=== PATIENT | male | born 1965 | race Caucasian/White ===

== ENCOUNTER 2016-08-12 23:57 | Emergency (ER) | payer OTHER ==
[~2016-08-12] VITALS: Ht 182.9 cm; Wt 92.5 kg
[~2016-08-12 23:57] MED LIST: SULF1TAB48 PO
[2016-08-13] MEDS ORDERED: ALBU8.5H2 INH (00:32)
--- NOTE | 2016-08-13 00:45 | NUR ---
Pt c/o ache on back. Denies pain and itching on site. Also requesting Rx refill for albuterol
--- NOTE | 2016-08-13 00:56 | NUR ---
Patient discharged to home in stable conditon. Written and verbal after care instructions given. Patient verbalizes understanding of instructions. walked out of ER with steady gait
== END 2016-08-13 00:57 | disposition home or self-care (01) ==
LOC: ER 23:57
DX: L70.9 Acne, unspecified (principal); I10 Essential (primary) hypertension; F41.9 Anxiety disorder, unspecified; J45.909 Unspecified asthma, uncomplicated
CPT/HCPCS: A4663

== ENCOUNTER 2016-08-24 09:10 | Emergency (ER) | payer OTHER ==
[~2016-08-24] VITALS: Ht 182.9 cm; Wt 90.7 kg
[~2016-08-24 09:10] MED LIST changes: +ALBU8.5H2 INH; -SULF1TAB48 PO
[2016-08-24 10:16] LABS: *BILIRUBIN,URIN NEGATIVE (NEGATIVE); *BLOOD, URINE NEGATIVE (NEGATIVE); *COLOR,URINE YELLOW (YELLOW); *KETONES,URINE NEGATIVE (NEGATIVE); *PROTEIN,URINE TRACE (NEGATIVE); *UROBILINOGEN,URINE 0.2 E.U./dl (NORMAL); LEUKOCYTE ESTERASE ,URINE NEGATIVE (NEGATIVE); NITRITE, URINE NEGATIVE (NEGATIVE); UGLUCOSE NEGATIVE (NEGATIVE)
[2016-08-24 10:26] LABS: *CLARITY,URINE SLIGHTLY CLOUDY (CLEAR); BACTERIA,URINE NONE SEEN /HPF (NONE SEEN); RBC,URINE 0-3 /HPF (0-3); SQUAMOUS EPITHELIAL CELL,UR FEW /HPF (NONE SEEN); WBC,URINE 0-3 /HPF (0-3)
[2016-08-24 10:33] LABS: CALCIUM 8.6 mg/dL (8.5-10.1); POTASSIUM 4.9 mmol/L (3.5-5.1)
[2016-08-24 10:37] LABS: CREATININE 1.4 mg/dL (0.6-1.3)
[2016-08-24 10:38] LABS: BASOPHILS # (AUTO) 0.1 K/uL (0.0-8.0); BASOPHILS % (AUTO) 0.7 % (0.0-2.0); EOSINOPHILS # (AUTO) 0.2 K/uL (0.0-0.7); EOSINOPHILS % (AUTO) 1.8 % (0.0-7.0); HEMATOCRIT 41.2 % (36.7-47.1); HEMOGLOBIN 13.7 g/dL (12.5-16.3); LYMPHOCYTES # (AUTO) 2.1 K/uL (20.0-40.0); LYMPHOCYTES % (AUTO) 20.1 % (20.5-51.5); MEAN CORPUSCULAR HEMOGLOBIN 28.8 uug (23.8-33.4); MEAN CORPUSCULAR HGB CONC 33 g/dL (32.5-36.3); MEAN CORPUSCULAR VOLUME 86.3 fL (73.0-96.2); MONOCYTES # (AUTO) 0.7 K/uL (2.0-10.0); MONOCYTES % (AUTO) 6.5 % (0.0-11.0); NEUTROPHILS # (AUTO) 7.4 K/uL (1.8-8.9); NEUTROPHILS % (AUTO) 70.9 % (38.5-71.5); PLATELET COUNT (AUTO) 410 K/uL (152-348); RED BLOOD CELL COUNT(AUTO) 4.77 MIL/uL (4.06-5.63); RED CELL DISTRIBUTION WIDTH 14.2 % (12.1-16.2); WHITE BLOOD COUNT (AUTO) 10.5 K/uL (3.6-10.2)
[2016-08-24] MEDS ORDERED: HYDROCODONE/APAP 10-325 MG TABLET PO ONE (11:00)
--- NOTE | 2016-08-24 11:05 | NUR ---
Patient discharged to home in stable conditon. Written and verbal after care instructions given. Patient verbalizes understanding of instructions.
[2016-08-24 11:06] VITALS: BP 151/77
[2016-08-24] MEDS ORDERED: HYDROCODONE/APAP 10-325 MG TABLET ONE (11:08)
== END 2016-08-24 11:06 | disposition home or self-care (01) ==
LOC: ER 09:10
DX: M54.9 Dorsalgia, unspecified (principal); I10 Essential (primary) hypertension; F41.9 Anxiety disorder, unspecified; J45.909 Unspecified asthma, uncomplicated
CPT/HCPCS: 36415; 85025; 87086; A4663

== ENCOUNTER 2017-06-28 16:41 | Inpatient (IN) | payer OTHER ==
[~2017-06-28] VITALS: Ht 185.4 cm; Wt 79.4 kg
[~2017-06-28 16:41] MED LIST changes: -ALBU8.5H2 INH; +ALBU8.5H8 INH
--- NOTE | 2017-06-28 17:42 | NUR ---
Pt states he was bitten by a spider on the tip of his left index finger about 3 days ago, since, finger has turned dark and has swollen, spread since first day. Pain, but PMS intact. Pt denies any other s/s, no distress noted.
--- NOTE | 2017-06-28 19:09 | NUR ---
Report taken from LISE Molina. Assuming Pt care at this time.
--- NOTE | 2017-06-28 19:25 | NUR ---
JAI NIELSEN at bedside for MSE.
[2017-06-28] MEDS ORDERED: IV NORMAL SALINE 1000 ML BAG IV ONE (19:30)
[2017-06-28] MEDS ORDERED: VANCOMYCIN IV 1,000 MG in IV DEXTROSE 5% 250 ML IV ONE (19:30)
[2017-06-28] MEDS ORDERED: VANCOMYCIN IV 200 ML ONE (19:36)
[2017-06-28 20:11] LABS: BASOPHILS # (AUTO) 0.1 K/uL (0.0-8.0); BASOPHILS % (AUTO) 0.7 % (0.0-2.0); EOSINOPHILS # (AUTO) 0.3 K/uL (0.0-0.7); EOSINOPHILS % (AUTO) 2.5 % (0.0-7.0); HEMATOCRIT 36.8 % (36.7-47.1); HEMOGLOBIN 12.7 g/dL (12.5-16.3); LYMPHOCYTES # (AUTO) 1.8 K/uL (20.0-40.0); LYMPHOCYTES % (AUTO) 17.6 % (20.5-51.5); MEAN CORPUSCULAR HGB CONC 35 g/dL (32.5-36.3); MEAN CORPUSCULAR VOLUME 86.9 fL (73.0-96.2); MONOCYTES # (AUTO) 0.8 K/uL (2.0-10.0); MONOCYTES % (AUTO) 7.7 % (0.0-11.0); NEUTROPHILS # (AUTO) 7.5 K/uL (1.8-8.9); NEUTROPHILS % (AUTO) 71.5 % (38.5-71.5); PLATELET COUNT (AUTO) 222 K/uL (152-348); RED BLOOD CELL COUNT(AUTO) 4.24 MIL/uL (4.06-5.63); WHITE BLOOD COUNT (AUTO) 10.5 K/uL (3.6-10.2)
[2017-06-28 20:28] LABS: CREATININE 1.1 mg/dL (0.6-1.3); POTASSIUM 4.7 mmol/L (3.5-5.1)
[2017-06-28 20:33] LABS: BILIRUBIN,TOTAL 0.3 mg/dL (0.2-1.0); TOTAL PROTEIN, SERUM 6.9 g/dL (6.4-8.2)
--- NOTE | 2017-06-28 21:25 | NUR ---
Report given to Suri LEZAMA
--- NOTE | 2017-06-28 22:15 | NUR ---
RECEIVED PATIENT VIA GURNEY FROM ER. PATIENT IS A/O X4. LEFT INDEX FINGER, SWOLLEN, RED AND BRUISED. PATIENT STATED THERE IS REDNESS SPREADING UP LEFT ARM AND BRUISING NOTED IN LEFT ARMPIT. MILD REDNESS ONLY NOTED SPREADING TO WRIST. CHECKED LEFT ARM PIT, NO BRUISING OR DISCOLORATION NOTED. ASSESSED WITH RN. CAROL. H/L INTACT AND PATENT. ORIENTED PATIENT TO ROOM AND CALL LIGHT. CALL LIGHT IN REACH. ALL NEEDS ATTENDED. WILL CONTINUE TO MONITOR.
[2017-06-28 22:34] VITALS: BP 124/68
[2017-06-28] MEDS ORDERED: ONDANSETRON 4 MG/2 ML VIAL IV PRN (22:45)
[2017-06-28] MEDS ORDERED: ACETAMINOPHEN 325 MG TABLET PO PRN (22:45)
[2017-06-28] MEDS ORDERED: ALBUTEROL SULFATE 8 GM HFA.AER.AD INH PRN (22:45)
[2017-06-28] MEDS ORDERED: MAGNESIUM HYDROXIDE 30 ML LIQUID UDC PO PRN (22:45)
[2017-06-28] MEDS ORDERED: PIPERACILLIN SODIUM/TAZO 3.375 GM VIAL ONE (22:56)
[2017-06-28] MEDS: HYDROCODONE/APAP 5-325MG TABLET PO PRN (23:07)
--- NOTE | 2017-06-28 23:10 | NUR ---
PATIENT C/O PAIN IN LEFT INDEX FINGER/HAND. PATIENT GIVEN NORCO 1 TAB PO PRN FOR PAIN. WILL CONTINUE TO MONITOR AND ASSESS.
[2017-06-28] MEDS: PIPERACILLIN/TAZOBACTAM/D5W 3.375 G in PREMIXED 1 EACH IV SCH (23:22)
--- NOTE | 2017-06-29 00:30 | NUR ---
PATIENT ASLEEP IN BED. NO S/S OF PAIN OR DISCOMFORT. NO RESP. DISTRESS NOTED. CALL LIGHT IN REACH. ALL NEEDS ATTENDED. WILL CONTINUE TO MONITOR.
[2017-06-29 04:47] VITALS: BP 122/65
--- NOTE | 2017-06-29 06:23 | NUR ---
PATIENT ASLEEP IN BED. SLEPT WELL. NO S/S OF PAIN OR DISCOMFORT. DRESSING NOTED TO LEFT HAND, C/D/I. VSS. CALL LIGHT IN REACH. ALL NEEDS ATTENDED. WILL CONTINUE TO MONITOR AND ASSESS.
[2017-06-29] MEDS: PIPERACILLIN/TAZOBACTAM/D5W 3.375 G in PREMIXED 1 EACH IV SCH ×3 (06:24→21:13)
[2017-06-29 06:57] LABS: BASOPHILS # (AUTO) 0.1 K/uL (0.0-8.0); BASOPHILS % (AUTO) 0.6 % (0.0-2.0); EOSINOPHILS # (AUTO) 0.3 K/uL (0.0-0.7); EOSINOPHILS % (AUTO) 3.6 % (0.0-7.0); HEMATOCRIT 35.1 % (36.7-47.1); HEMOGLOBIN 12.1 g/dL (12.5-16.3); LYMPHOCYTES # (AUTO) 1.9 K/uL (20.0-40.0); LYMPHOCYTES % (AUTO) 22.1 % (20.5-51.5); MEAN CORPUSCULAR HGB CONC 35 g/dL (32.5-36.3); MEAN CORPUSCULAR VOLUME 86.5 fL (73.0-96.2); MONOCYTES # (AUTO) 0.8 K/uL (2.0-10.0); MONOCYTES % (AUTO) 9.3 % (0.0-11.0); NEUTROPHILS # (AUTO) 5.4 K/uL (1.8-8.9); NEUTROPHILS % (AUTO) 64.4 % (38.5-71.5); PLATELET COUNT (AUTO) 232 K/uL (152-348); RED BLOOD CELL COUNT(AUTO) 4.05 MIL/uL (4.06-5.63); WHITE BLOOD COUNT (AUTO) 8.4 K/uL (3.6-10.2)
[2017-06-29 07:03] LABS: CREATININE 1.1 mg/dL (0.6-1.3); PHOSPHOROUS 3.6 mg/dL (2.5-4.9); POTASSIUM 4.1 mmol/L (3.5-5.1)
[2017-06-29] MEDS ORDERED: ALBUTEROL SULFATE 2.5 MG/3 ML NEBU NEB PRN (08:15)
[2017-06-29] MEDS ORDERED: FAMOTIDINE 20 MG TABLET PO SCH (09:00)
[2017-06-29] MEDS: HYDROCODONE/APAP 5-325MG TABLET PO PRN ×3 (10:04→22:26)
[2017-06-29 11:09] VITALS: BP 118/74
[2017-06-29] MEDS: VANCOMYCIN IV 1,250 MG in IV NORMAL SALINE 500 ML IV SCH ×2 (11:24→22:04)
--- NOTE | 2017-06-29 12:33 | NUR ---
SBAR report received at bedside, board updated. Pt awake, alert, and oriented. Pt assessed, no acute distress. Pt reports pain 8/10 resolved to left index finger from [place] administered per PRN orders. Pt compliant with all routinely scheduled medication administration. VS WNL. IV flushed and patent. Call light and personal items placed within reach. Bed in locked and lowest position, with side rails up x2. Will continue to monitor.
[2017-06-29 15:12] VITALS: BP 123/65
--- NOTE | 2017-06-29 16:10 | NUR ---
Clinical pharmacy note-Vancomycin dosing per pharmacy Subjective: To start Vancomycin dosing on this patient for cellulitis Objective: BUN 18 Scr 1.1 WBC 8.4 Temp 98.2 Ht 185. 42 cm Wt 79.379kg Assessment/Plan: Patient had Vancomycin 1gram x1 last night at 2000. Will start Vancomycin 1250mg IV every 12hrs(first dose given today at 1100) and draw trough by 4th dose(not ordered yet) for expected trough around 15. Will monitor daily.
--- NOTE | 2017-06-29 18:59 | NUR ---
Pt has remained stable throughout this shift. Reports SOB with no acute distress. Respiratory called and administered PRN breathing Tx. Call light within reach. 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
[2017-06-29 20:00] VITALS: BP 115/55
--- NOTE | 2017-06-29 20:00 | NUR ---
RECEIVED PATIENT ASLEEP IN BED. EASILY AROUSABLE. VSS. NO C/O PAIN OR DISCOMFORT. NO RESP. DISTRESS NOTED. DRESSING NOTED TO LEFT INDEX FINGER/HAND. H/L INTACT AND PATENT. CALL LIGHT IN REACH. ALL NEEDS ATTENDED. WILL CONTINUE TO MONITOR.
--- NOTE | 2017-06-29 21:40 | NUR ---
RECEIVED VERBAL ORDER THAT PATIENT IS TO BE DISCHARGED TONIGHT. WAITING FOR DISCHARGE ORDERS. ALL NEEDS ATTENDED.
[2017-06-29] MEDS ORDERED: SULF1TAB48 PO (22:19)
[2017-06-29] MEDS ORDERED: HYDR-3326 PO (22:19)
--- NOTE | 2017-06-29 22:30 | NUR ---
DR. HU AWARE THAT PATIENT WILL LEAVE AFTER VANCOMYCIN DOSE IS GIVEN.
--- NOTE | 2017-06-30 00:10 | NUR ---
VANCOMYCIN FINISHED. HEPLOCK FLUSHED AND REMOVED. PATIENT IS READY TO GO HOME. VSS. DENIES PAIN OR DISCOMFORT. PATIENT EDUCATED AND DISCHARGE INSTRUCTIONS GIVEN. PATIENT VERBALIZED UNDERSTANDING.
--- NOTE | 2017-06-30 00:20 | NUR ---
PATIENT DISCHARGED HOME. LEFT IN STABLE CONDITION. ALL NEEDS ATTENDED.
== END 2017-06-30 00:20 | disposition home or self-care (01) | DRG 383 ==
LOC: ER 16:41 → MED 21:52
PROVIDERS: ADMIT Internal Medicine; ATTEND Internal Medicine
DX: L03.012 Cellulitis of left finger (principal); I10 Essential (primary) hypertension; F41.9 Anxiety disorder, unspecified; G89.29 Other chronic pain; J45.909 Unspecified asthma, uncomplicated; S61.231A Puncture wound without foreign body of left index finger without damage to nail, initial encounter; W57.XXXA Bitten or stung by nonvenomous insect and other nonvenomous arthropods, initial encounter; Y92.89 Other specified places as the place of occurrence of the external cause; Z98.84 Bariatric surgery status; M54.9 Dorsalgia, unspecified; Z87.891 Personal history of nicotine dependence
CPT/HCPCS: 36415; 83605; 83735; 84100; 85025; 87040; 94664; A4663; J2543; J3370; J7030; J7040; J7060